=== PATIENT | male | born 1975 | race Caucasian/White ===

== ENCOUNTER → 2016-08-19 | Outpatient (CLI) | payer OTHER ==
[~2016-08-19] VITALS: Ht 167.6 cm; Wt 169.6 kg
[~2016-08-19] MED LIST: COZAAR100 MG PO; DAZIDOX10 MG PO; FLONASE NASAL S16 GM NS; LIORESAL 1010 MG/TAB PO; LIPITOR 40MG TA40 MG PO; NIZORAL CR 60GM TOP; NIZORAL SHAMPO120 M1 TP; NORVASC 10MG10 MG PO; PROTONIX 40MG T40 MG PO; TAGAMET800 MG PO; ZYRTEC 10MG10 MG PO
[2016-08-19 13:23] VITALS: BP 141/73; PULSE 89
== END ==
LOC: LIGHT 11:15
DX: E66.01 Morbid (severe) obesity due to excess calories (principal); Z68.44 Body mass index [BMI] 60.0-69.9, adult; M54.5 Low back pain; M51.36 Other intervertebral disc degeneration, lumbar region; K21.9 Gastro-esophageal reflux disease without esophagitis

== ENCOUNTER → 2017-01-23 | Outpatient (CLI) | payer OTHER ==
[~2017-01-23] VITALS: Ht 167.6 cm; Wt 171.7 kg
[2017-01-23 09:48] VITALS: BP 110/80; PULSE 80
== END ==
LOC: LIGHT 09:12
DX: E66.01 Morbid (severe) obesity due to excess calories (principal); Z68.43 Body mass index [BMI] 50.0-59.9, adult; Z71.3 Dietary counseling and surveillance; M54.5 Low back pain; M51.36 Other intervertebral disc degeneration, lumbar region; K21.9 Gastro-esophageal reflux disease without esophagitis

== ENCOUNTER → 2017-02-10 | Outpatient (CLI) | payer OTHER ==
[~2017-02-10] VITALS: Ht 167.6 cm; Wt 176.7 kg
== END ==
LOC: LIGHT 08:20
DX: Z01.89 Encounter for other specified special examinations (principal)